=== PATIENT | male | born 1960 | race Caucasian/White ===

== ENCOUNTER → 2019-08-24 | Emergency (ER) | payer OTHER ==
[~2019-08-24] VITALS: Ht 177.8 cm; Wt 90.7 kg
[~2019-08-24] MED LIST: ASPIR 8181 MG; NEXIUM10 MG
== END | disposition home or self-care (01) ==
LOC: ER 19:04
DX: S93.402A Sprain of unspecified ligament of left ankle, initial encounter (principal); X50.9XXA Other and unspecified overexertion or strenuous movements or postures, initial encounter; Y93.89 Activity, other specified; Y92.89 Other specified places as the place of occurrence of the external cause; Y99.8 Other external cause status; X50.0XXA Overexertion from strenuous movement or load, initial encounter